=== PATIENT | female | born 2005 | race African-American/Black ===

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

== ENCOUNTER 2025-06-04 16:48 | Emergency (ER) | payer OTHER, SELFPAY | END 2025-06-04 19:10 | disposition home or self-care (01) | LOC: ERS 16:48 | DX: B08.4 Enteroviral vesicular stomatitis with exanthem (principal); R09.81 Nasal congestion | CPT/HCPCS: 71046; 96372 ==